=== PATIENT | female | born 1995 | race American Indian/Alaskan Native ===

== ENCOUNTER 2021-04-18 15:56 | Observation (INO) | payer MEDICAID ==
--- NOTE | 2021-04-18 17:23 | Emergency Department Report ---
ED General Adult HPI - General Chief complaint: Vaginal Bleeding Stated complaint: VAG BLEEDING Time Seen by Provider: 04/18/21 17:16 Source: patient Mode of arrival: Ambulatory Limitations: No Limitations - History of Present Illness Initial comments: Patient is a 25-year-old female presents emergency complaints of vaginal bleeding that began 2 days ago. She states that this morning she began having lower abdominal cramping. She states that she is also been having some dysuria. She denies any fever, vomiting, diarrhea, nausea, abnormal vaginal discharge. She reports her last menstrual cycle was February 11. She states that she went to a clinic in [facility] - [place], [place] and was advised that she was but they were not able to visualize anything on ultrasound she was advised to return in 2 weeks, she states it has not quite been 2 weeks yet. No allergies to medications. /P:0/A:1 - Related Data Allergies Allergy/AdvReac Type Severity Reaction Status Date / Time No Known Allergies Allergy Unverified 04/18/21 16:11 ED Review of Systems ROS: Stated complaint: VAG BLEEDING Other details as noted in HPI Comment: All other systems reviewed and negative ED Past Medical Hx - Past Medical History Previous Medical History?: No - Surgical History Past Surgical History?: No ED Physical Exam - General Limitations: No Limitations General appearance: alert, in no apparent distress - Head Head exam: Present: atraumatic, normocephalic - Eye Eye exam: Present: normal appearance - ENT ENT exam: Present: mucous membranes moist - Respiratory Respiratory exam: Present: normal lung sounds bilaterally. Absent: respiratory distress, wheezes, rales, rhonchi, stridor, chest wall tenderness, accessory muscle use, decreased breath sounds, prolonged expiratory - Cardiovascular Cardiovascular Exam: Present: regular rate, normal rhythm, normal heart sounds. Absent: systolic murmur, diastolic murmur, rubs, gallop - GI/Abdominal GI/Abdominal exam: Present: soft, normal bowel sounds. Absent: distended, tenderness, guarding, rebound, rigid - Neurological Exam Neurological exam: Present: alert, oriented X3 - Psychiatric Psychiatric exam: Present: normal affect, normal mood - Skin Skin exam: Present: warm, dry, intact ED Course Vital Signs 04/18/21 04/18/21 16:12 20:40 Temperature 98.6 F Pulse Rate 90 81 Respiratory 16 Rate Blood Pressure 122/61 Blood Pressure 116/60 [Left] O2 Sat by Pulse 100 100 Oximetry - Consultations Consultation #1: 04/18/21 19:[address] Richard, [employer] regarding patient history and results, advised to have nurses place two large-bore IVs, give 1 L normal saline, and he advised to have 2 units of packed red blood cells crossmatched to patient but do not need to transfuse unless he needs them in the operating room, he will accept and resume care of patient ED Medical Decision Making - Lab Data Result diagrams: 04/18/21 17:34 04/18/21 17:34 Lab Results 04/18/21 04/18/21 04/18/21 Range/Units 17:34 17:34 17:34 WBC 9.5 (4.5-11.0) K/mm3 RBC 4.37 (3.65-5.03) M/mm3 Hgb 11.8 (10.1-14.3) gm/dl Hct 36.8 (30.3-42.9) % MCV 84 (79-97) fl MCH 28 (28-32) pg MCHC 33 (30-34) % RDW 14.0 (13.2-15.2) % Plt Count 422 (140-440) K/mm3 Lymph % (Auto) 18.5 (13.4-35.0) % [place] % (Auto) 6.9 (0.0-7.3) % Eos % (Auto) 0.7 (0.0-4.3) % Baso % (Auto) 0.5 (0.0-1.8) % Lymph # (Auto) 1.7 (1.2-5.4) K/mm3 [place] # (Auto) 0.6 (0.0-0.8) K/mm3 Eos # (Auto) 0.1 (0.0-0.4) K/mm3 Baso # (Auto) 0.1 (0.0-0.1) K/mm3 Seg Neutrophils % 73.4 H (40.0-70.0) % Seg Neutrophils # 7.0 (1.8-7.7) K/mm3 Sodium 139 (137-145) mmol/L Potassium 3.5 L (3.6-5.0) mmol/L Chloride 102.0 (98-107) mmol/L Carbon Dioxide 22 (22-30) mmol/L Anion Gap 19 mmol/L BUN 7 (7-17) mg/dL Creatinine 0.6 (0.6-1.2) mg/dL Estimated GFR > 60 ml/min BUN/Creatinine Ratio 12 % Glucose 98 (65-100) mg/dL Calcium 9.3 (8.4-10.2) mg/dL Total Bilirubin 0.60 (0.1-1.2) mg/dL AST 13 (5-40) units/L ALT 9 (7-56) units/L Alkaline Phosphatase 82 (35-129) units/L Total Protein 7.8 (6.3-8.2) g/dL Albumin 4.2 (3.9-5) g/dL Albumin/Globulin Ratio 1.2 % HCG, Quant 1871 H (0-4) mIU/mL Urine Color (Yellow) Urine Turbidity (Clear) Urine pH (5.0-7.0) Ur Specific [place] (1.003-1.030) Urine Protein (Negative) mg/dL Urine Glucose (UA) (Negative) mg/dL Urine Ketones (Negative) mg/dL Urine Blood (Negative) Urine Nitrite (Negative) Urine Bilirubin (Negative) Urine Urobilinogen (<2.0) mg/dL Ur Leukocyte Esterase (Negative) Urine WBC (Auto) (0.0-6.0) /HPF Urine RBC (Auto) (0.0-6.0) /HPF U Epithel Cells (Auto) (0-13.0) /HPF Urine Bacteria (Auto) (Negative) /HPF Urine Mucus /HPF Blood Type Crossmatch 04/18/21 04/18/21 04/18/21 Range/Units 17:34 19:50 Unknown WBC (4.5-11.0) K/mm3 RBC (3.65-5.03) M/mm3 Hgb (10.1-14.3) gm/dl Hct (30.3-42.9) % MCV (79-97) fl MCH (28-32) pg MCHC (30-34) % RDW (13.2-15.2) % Plt Count (140-440) K/mm3 Lymph % (Auto) (13.4-35.0) % [place] % (Auto) (0.0-7.3) % Eos % (Auto) (0.0-4.3) % Baso % (Auto) (0.0-1.8) % Lymph # (Auto) (1.2-5.4) K/mm3 [place] # (Auto) (0.0-0.8) K/mm3 Eos # (Auto) (0.0-0.4) K/mm3 Baso # (Auto) (0.0-0.1) K/mm3 Seg Neutrophils % (40.0-70.0) % Seg Neutrophils # (1.8-7.7) K/mm3 Sodium (137-145) mmol/L Potassium (3.6-5.0) mmol/L Chloride (98-107) mmol/L Carbon Dioxide (22-30) mmol/L Anion Gap mmol/L BUN (7-17) mg/dL Creatinine (0.6-1.2) mg/dL Estimated GFR ml/min BUN/Creatinine Ratio % Glucose (65-100) mg/dL Calcium (8.4-10.2) mg/dL Total Bilirubin (0.1-1.2) mg/dL AST (5-40) units/L ALT (7-56) units/L Alkaline Phosphatase (35-129) units/L Total Protein (6.3-8.2) g/dL Albumin (3.9-5) g/dL Albumin/Globulin Ratio % HCG, Quant (0-4) mIU/mL Urine Color Red (Yellow) Urine Turbidity Clear (Clear) Urine pH 5.0 (5.0-7.0) Ur Specific [place] 1.019 (1.003-1.030) Urine Protein 100 mg/dl (Negative) mg/dL Urine Glucose (UA) 50 (Negative) mg/dL Urine Ketones Neg (Negative) mg/dL Urine Blood Mod (Negative) Urine Nitrite Pos (Negative) Urine Bilirubin Neg (Negative) Urine Urobilinogen 2.0 (<2.0) mg/dL Ur Leukocyte Esterase Neg (Negative) Urine WBC (Auto) 16.0 H (0.0-6.0) /HPF Urine RBC (Auto) 7.0 (0.0-6.0) /HPF U Epithel Cells (Auto) 14.0 H (0-13.0) /HPF Urine Bacteria (Auto) 1+ (Negative) /HPF Urine Mucus 2+ /HPF Blood Type O POSITIVE O POSITIVE Crossmatch See Detail - Radiology Data Radiology results: report reviewed Ordering Physician: FERNANDO RICHARD Date of Service: 04/18/21 Procedure(s): US OB transvaginal Accession Number(s): [id number] cc: FERNANDO RICHARD ULTRASOUND OBSTETRIC INDICATION / CLINICAL INFORMATION: , cramping, bleeding. TECHNIQUE: Transabdominal and Transvaginal. COMPARISON: None available. FINDINGS: There is no intrauterine . There is a rounded structure in the right adnexa appearing to be in the right tube that may indicate an ectopic in the fallopian tube. The uterus and ovaries appear normal otherwise. There is some free fluid in the pelvis. IMPRESSION: Rounded structure in the right fallopian tube region suggestive of an ectopic . Correlation with hCG values is recommended. Findings discussed with Renate Barnes at 6:49 PM on 04/18/2021. Signer Name: Kit Gould MD Signed: 04/18/2021 7:49 PM Workstation Name: [id number] Transcribed By: TERESO Dictated By: Kit Gould MD Electronically Authenticated By: Kit Gould MD Signed Date/Time: 04/18/211948 DD/ 44 TD/TT: - Medical Decision Making Patient is a 25-year-old female presents emergency complaints of vaginal bleeding that began 2 days ago. She states that this morning she began having lower abdominal cramping. She states that she is also been having some dysuria. She denies any fever, vomiting, diarrhea, nausea, abnormal vaginal discharge. She reports her last menstrual cycle was February 11. She states that she went to a clinic in [facility] [place], [place] and was advised that she was but they were not able to visualize anything on ultrasound she was advised to return in 2 weeks, she states it has not quite been 2 weeks yet. No allergies to medications. /P:0/A:1. Vitals are stable. Patient is Rh+. H&H is normal. hCG quant is 1817. UA shows 1+ bacteria and white blood cells, there are many epithelial cells, could be due to contamination, will give patient 1 g ceftriaxone while in the emergency department. OB ultrasound Rounded structure in the right fallopian tube region suggestive of an ectopic . Correlation with hCG values is recommended. Spoke to Dr. Richard, [employer] regarding patient history and results, advised to have nurses place two large- bore IVs, give 1 L normal saline, and he advised to have 2 units of packed red blood cells crossmatched to patient but do not need to transfuse unless he needs them in the operating room, he will accept and resume care of patient. Discussed all findings with patient who is agreeable with plan. Critical care attestation.: If time is entered above; I have spent that time in minutes in the direct care of this critically ill patient, excluding procedure time. ED Disposition Clinical Impression: Ectopic Qualifiers: Location of ectopic : tubal Intrauterine status: without intrauterine Laterality: right Qualified Code(s): O00.101 - Right tubal without intrauterine UTI (urinary tract infection) Qualifiers: Urinary tract infection type: acute cystitis Hematuria presence: without hematuria Qualified Code(s): N30.00 - Acute cystitis without hematuria Disposition: 30 STILL A PATIENT Is pt being admited?: No Does the pt Need Aspirin: No Condition: Stable Referrals: PRIMARY CARE, [Primary Care Provider] - 3-5 Days Time of Disposition: 19:58 Print Language: TURKMEN
[2021-04-18 18:01] LABS: Basophils # (Auto) 0.1 K/mm3 (0.0-0.1); Basophils % (Auto) 0.5 % (0.0-1.8); Eosinophils # (Auto) 0.1 K/mm3 (0.0-0.4); Eosinophils % (Auto) 0.7 % (0.0-4.3); Hemoglobin 11.8 gm/dl (10.1-14.3); Lymphocytes # (Auto) 1.7 K/mm3 (1.2-5.4); Lymphocytes % (Auto) 18.5 % (13.4-35.0); Monocytes # (Auto) 0.6 K/mm3 (0.0-0.8); Monocytes % (Auto) 6.9 % (0.0-7.3)
[2021-04-18 18:15] LABS: Hematocrit 36.8 % (30.3-42.9); Mean Corpuscular HGB Conc 33 % (30-34); Mean Corpuscular Volume 84 fl (79-97); Platelet Count 422 K/mm3 (140-440); Red Blood Count 4.37 M/mm3 (3.65-5.03)
[2021-04-18 18:16] LABS: Bacteria,Urine 1+ /HPF (Negative); Bilirubin,Urine NEG (Negative); Blood,Urine MOD (Negative); Color,Urine Red (Yellow); Mucus,Urine 2+ /HPF
[2021-04-18 18:18] LABS: Alanine Aminotransferase 9 units/L (7-56); Albumin 4.2 g/dL (3.9-5); Blood Urea Nitrogen 7 mg/dL (7-17); Calcium 9.3 mg/dL (8.4-10.2); Hemolysis Index 0
[2021-04-18 18:20] LABS: BUN/Creatinine Ratio 12
[2021-04-18] MEDS ORDERED: SODIUM CHLORIDE 0.9% 1000 ML 1,000 ML IV ONE (19:52)
--- NOTE | 2021-04-18 19:54 | Ultrasound Report ---
ULTRASOUND OBSTETRIC INDICATION / CLINICAL INFORMATION: , cramping, bleeding. TECHNIQUE: Transabdominal and Transvaginal. COMPARISON: None available. FINDINGS: There is no intrauterine . There is a rounded structure in the right adnexa appearing to be in the right tube that may indicate an ectopic in the fallopian tube. The uterus and ovaries appear normal otherwise. There is some free fluid in the pelvis. IMPRESSION: Rounded structure in the right fallopian tube region suggestive of an ectopic . Correlation with hCG values is recommended. Findings discussed with Renate Barnes at 6:49 PM on 04/18/2021. Signer Name: Kit Gould MD Signed: 04/18/2021 7:49 PM Workstation Name: [id number]
[2021-04-18] MEDS ORDERED: SODIUM CHLORIDE 0.9% 500 ML 500 ML IV ONE (19:56)
[2021-04-18] MEDS ORDERED: cefTRIAXone/NS 1 GM/50 ML 1 GM/50 ML BAG IV ONE (20:48)
--- NOTE | 2021-04-18 21:00 | Anesthesia Consultation ---
Anesthesia Consult and Med Hx Date of service: 04/18/21 - Airway Anesthetic Teeth Evaluation: Good, Crowns ROM Head & Neck: Adequate Mental/Hyoid Distance: Adequate Mallampati Class: Class II Intubation Access Assessment: Probably Good - Pre-Operative Health Status ASA Pre-Surgery Classification: ASA1, Emergency Proposed Anesthetic Plan: General - Pulmonary Hx Smoking: Yes (vape) Hx Asthma: No Hx Respiratory Symptoms: No SOB: No COPD: No Home Oxygen Therapy: No Hx Pneumonia: No Hx Sleep Apnea: No - Cardiovascular System Hx Hypertension: No Hx Coronary Artery Disease: No Hx Heart Attack/AMI: No Hx Angina: No Hx Percutaneous Transluminal Coronary Angioplasty (PTCA): No Hx Cardia Arrhythmia: No Hx Pacemaker: No Hx Internal Defibrillator: No Hx Valvular Heart Disease: No Hx Heart Murmur: No Hx Peripheral Vascular Disease: No - Central Nervous System Hx Neuromuscular Disorder: No Hx Seizures: No CVA: No Hx Back Pain: No Hx Psychiatric Problems: No - Gastrointestinal Hx Ulcer: No Hx Gastroesophageal Reflux Disease: No - Endocrine Hx Renal Disease: No Hx End Stage Renal Disease: No Hx Cirrhosis: No Hx Liver Disease: No Hx Insulin Dependent Diabetes: No Hx Non-Insulin Dependent Diabetes: No Hx Thyroid Disease: No Hx Hypothyroidism: No Hx Hyperthyroidism: No - Hematic Hx Anemia: No Hx Sickle Cell Disease: No - Other Systems Hx Alcohol Use: Yes (daily) Hx Substance Use: No Hx Cancer: No Hx Obesity: Yes
--- NOTE | 2021-04-18 21:03 | Anesthesia Day of Surgery ---
Anesthesia Day of Surgery - Day of Surgery Patient Examined: Yes Patient H&P Reviewed: Yes Patient is NPO: Yes
[2021-04-18] MEDS ORDERED: BUPIVACAINE/PF (0.5%) 5 MG/1 ML 30 ML VIAL INFILTRATI ONE (21:21)
[2021-04-18] MEDS ORDERED: ONDANSETRON 4 MG/2 ML INJ ONE (21:27)
[2021-04-18] MEDS ORDERED: LIDOCAINE MPF (2%) 20 MG/1 ML VIAL 5 ML ONE (21:27)
[2021-04-18] MEDS ORDERED: GLYCOPYRROLATE 0.4 MG/2 ML INJ ONE (21:27)
[2021-04-18] MEDS ORDERED: fentaNYL 100 MCG/2 ML INJ ONE ×2 (21:27→22:34)
[2021-04-18] MEDS ORDERED: SUCCINYLCHOLINE CHLORIDE 200 MG/10 ML INJ MDV ONE (21:27)
[2021-04-18] MEDS ORDERED: PHENYLEPHRINE/NS 1,000 MCG/10 ML SYRINGE (OR USE) IV ONE (21:27)
[2021-04-18] MEDS ORDERED: dexAMETHasone 20 MG/5 ML VIAL ONE (21:27)
[2021-04-18] MEDS ORDERED: propofoL 200 MG/20 ML VIAL IV ONE (21:28)
--- NOTE | 2021-04-18 21:50 | History and Physical Report ---
History of Present Illness Date of examination: 04/18/21 Date of admission: 04/18/21 Chief complaint: pelvic pain x 2wks. History of present illness: 25 yr old. . pelvic pains, spotting vaginally, positive pregnacy. US finding of an adnexal mass, no IUP. Serum quant approx 1800. Past History Past Medical History: no pertinent history Medications and Allergies Allergies Allergy/AdvReac Type Severity Reaction Status Date / Time No Known Allergies Allergy Unverified 04/18/21 16:11 Review of Systems All systems: negative Genitourinary: vaginal bleeding, pelvic pain - Vital Signs Vital signs: Vital Signs Temp Pulse BP Pulse Ox 98.6 F 90 122/61 100 04/18/21 16:12 04/18/21 16:12 04/18/21 16:12 04/18/21 16:12 Temp Pulse Resp BP Pulse Ox 98.6 F 81 16 116/60 100 04/18/21 16:12 04/18/21 20:40 04/18/21 20:40 04/18/21 20:40 04/18/21 20:40 - Physical Exam Breasts: Positive: deferred Lungs: Positive: Normal air movement Abdomen: Positive: tenderness Extremities: Positive: normal Deep Tendon Reflex Grade: Normal +2 Results Result Diagrams: 04/18/21 17:34 04/18/21 17:34 Abnormal lab results 04/18/21 04/18/21 04/18/21 Range/Units 17:34 17:34 17:34 Seg Neutrophils % 73.4 H (40.0-70.0) % Potassium 3.5 L (3.6-5.0) mmol/L HCG, Quant 1871 H (0-4) mIU/mL Urine WBC (Auto) (0.0-6.0) /HPF U Epithel Cells (Auto) (0-13.0) /HPF Crossmatch 04/18/21 04/18/21 Range/Units 19:50 Unknown Seg Neutrophils % (40.0-70.0) % Potassium (3.6-5.0) mmol/L HCG, Quant (0-4) mIU/mL Urine WBC (Auto) 16.0 H (0.0-6.0) /HPF U Epithel Cells (Auto) 14.0 H (0-13.0) /HPF Crossmatch See Detail All other labs normal. Assessment and Plan - Patient Problems (1) Ectopic Current Visit: Yes Status: Acute Qualifiers: Location of ectopic : tubal Intrauterine status: without intrauterine Laterality: right Qualified Code(s): O00.101 - Right tubal without intrauterine Plan to address problem: for exploratory laparoscopy, plus definitive procedure to treat findings.
[2021-04-18] MEDS ORDERED: SODIUM CHLORIDE 0.9% IRR 1,500 ML BOTTLE IR ONE (22:16)
[2021-04-18] MEDS ORDERED: SUGAMMADEX SODIUM 200 MG/2 ML VIAL IV ONE (23:24)
[2021-04-18] MEDS ORDERED: ONDANSETRON 4 MG/2 ML INJ IV PRN (23:45)
[2021-04-18] MEDS ORDERED: NALOXONE 0.4 MG/1 ML INJ IV PRN (23:45)
[2021-04-18] MEDS ORDERED: ACETAMINOPHEN 325 MG TAB PO PRN (23:45)
[2021-04-18] MEDS ORDERED: MORPHINE 2 MG/1 ML INJ IV PRN (23:45)
[2021-04-18] MEDS ORDERED: HYDROcodone/ACETAMINOPHEN 5-325 MG TAB PO PRN (23:45)
[2021-04-18] MEDS ORDERED: KETOROLAC 30 MG/1 ML INJ IV PRN (23:45)
[2021-04-18] MEDS: HYDROmorphone 1 MG/1 ML INJ IV PRN (23:50)
[2021-04-18] MEDS ORDERED: HYDROmorphone 1 MG/1 ML INJ ONE (23:50)
--- NOTE | 2021-04-18 23:55 | Post Anesthesia Evaluation ---
- Post Anesthesia Evaluation Patient Participated: Yes Airway Patent: Yes Stable Respiratory Function: Yes Nausea/Vomiting: No Temp > 96.8F: Yes Pain Manageable: Yes Adequeate Hydration: Yes Anesthesia Complications: No Block Receding Appropriately: Not Applicable Patient on Ventilator: No Other Comments: pt a+o x3. no distress noted. resting comfortable in bed. vitals stable
[2021-04-19] MEDS: HYDROmorphone 1 MG/1 ML INJ IV PRN
--- NOTE | 2021-04-19 00:12 | Operative Report ---
Operative Report Operative Report: Date of surgery: April 18, 2021 Preoperative diagnosis: Right tubal ectopic Post operative diagnosis: Right tubal ectopic with moderate hemoperitoneum. Procedures: 1, attempted laparoscopic approach. 2, exploratory laparotomy. 3, right salpingectomy. Surgeon: Melony Richard MD Anesthesiologist: Myron Saavedra CRNA Anesthesia: GA EBL: 50cc Complications: none. Findings: Obese abdomen with inelastic tissue planes. Establishing a pneumoperitoneum was difficult and had to be tempered as it affected lungs ventilation by assistant financial accountant. The uterus was normal-sized anteverted. Both ovaries were grossly normal. The left fallopian tube was grossly normal. The right fallopian tube in its distal third was ballooned out by hemorrhagic mass. The inferior aspects of the greater omentum were grossly laden with adipose tissue. There was moderate hemoperitoneum within the peritoneal cavity. Procedure in detail: Patient was taken to the operating room. She was placed in the straight supine position and given general anesthesia. Patient was put in the lithotomy posi tion and prepped in the vulvar vagina and abdomen. The drapes were placed. A time out was done. With permission from the assistant financial accountant the procedure started with insertion of an indwelling Armstrong's catheter as well as a manipulating tenaculum placed on the anterior lip of the cervix. A subumbilical incision was made. The Veress needle was inserted carefully as possible to the peritoneal cavity with care taken to point the tip of the Veress needle into the free hollow of the pelvis. The Veress needle was aspirated and no blood was obtained. The Veress needle was further flushed through with a small quantity of sterile normal saline without any resistance. The general peritoneal cavity was thereafter insufflated with 1.3 L of CO2. This was insufficient for insertion of the 12 mm trocar and port. Permission of the assistant financial accountant was sought to increase the intraperitoneal pressure to 30 to allow more distention of the peritoneal cavity. The assistant financial accountant noticed difficulty with ventilation of the patient and the intraperitoneal pressure was promptly reduced. Attempts at placing a 12 mm port failed. An attempt at manual access through the subumbilical incision into peritoneal cavity also failed-the anterior parietal peritoneum was too tough to breech with my index finger. A decision was made to use a mini laparotomy through a small Pfannenstiel incision. The peritoneal cavity was quickly accessed in the usual fashion. The findings above were noted. The entire pelvis was carefully examined to locate the bleeding mass. This was excised using the LigaSure. The peritoneal cavity was irrigated with sterile normal saline. Hemostasis was great. The anterior parietal peritoneum was closed with #1 Vicryl as was the fascia. The skin was closed subcuticularly with 4-0 Vicryl. The incision at the navel was also closed in layers. Patient tolerated the procedure well. There were no complications. All sponges and instruments were accounted for. Patient was transferred safely to the recovery room.
[2021-04-19] MEDS ORDERED: LACTATED RINGERS 1,000 ML ONE (00:43)
[2021-04-19 05:48] LABS: Hematocrit 34.6 % (30.3-42.9); Hemoglobin 11.1 gm/dl (10.1-14.3); Mean Corpuscular HGB Conc 32 % (30-34); Mean Corpuscular Volume 85 fl (79-97); Platelet Count 424 K/mm3 (140-440); Red Blood Count 4.08 M/mm3 (3.65-5.03); Red Cell Distribution Width 14.4 % (13.2-15.2)
[2021-04-19 09:06] LABS: Anisocytosis 1+; Band Neutrophils # (Manual) 0.1 K/mm3; Total Cells Counted 100
--- NOTE | 2021-04-19 15:26 | Progress Note ---
Assessment and Plan - Patient Problems (1) Ectopic Current Visit: Yes Status: Acute Qualifiers: Location of ectopic : tubal Intrauterine status: without intrauterine Laterality: right Qualified Code(s): O00.101 - Right tubal without intrauterine (2) Status post abdominal surgery, follow-up exam Current Visit: Yes Status: Acute Plan to address problem: stable and may go home with script for norco 5. Subjective Date of service: 04/19/21 Principal diagnosis: Status post exploratory laparotomy and right salpingectomy. Interval history: Exp laparotomy 04/18/21 for bleeding ectopic . Objective - Constitutional Vitals: Vital Signs - 12hr 04/19/21 04/19/21 04/19/21 03:44 03:45 04:30 Temperature 97.7 F Pulse Rate 74 Respiratory 18 20 Rate Respiratory 18 Rate [Lower Abdomen] Blood Pressure 107/69 O2 Sat by Pulse 100 Oximetry 04/19/21 04/19/21 04/19/21 08:42 08:48 09:44 Temperature 97.9 F Pulse Rate 70 Respiratory 18 16 Rate Respiratory Rate [Lower Abdomen] Blood Pressure 105/48 O2 Sat by Pulse 100 99 Oximetry General appearance: Present: no acute distress - EENT Eyes: PERRL, EOM intact ENT: hearing intact - Neck Neck: supple, normal ROM - Respiratory Respiratory effort: normal - Cardiovascular Rhythm: regular Extremities: pulses intact, No edema, normal color, Full ROM - Gastrointestinal General gastrointestinal: Present: soft - Genitourinary Female genitourinary: deferred - Integumentary Integumentary: clear, warm, dry - Neurologic Neurologic: moves all extremities, gait normal - Labs CBC & Chem 7: 04/19/21 05:17 04/18/21 17:34 Labs: Abnormal lab results 04/18/21 04/18/21 04/18/21 Range/Units 17:34 17:34 17:34 WBC (4.5-11.0) K/mm3 MCH (28-32) pg Seg Neutrophils % 73.4 H (40.0-70.0) % Seg Neuts % (Manual) (40.0-70.0) % Lymphocytes % (Manual) (13.4-35.0) % Nucleated RBC % (0.0-0.9) % Seg Neutrophils # Man (1.8-7.7) K/mm3 Lymphocytes # (Manual) (1.2-5.4) K/mm3 Potassium 3.5 L (3.6-5.0) mmol/L HCG, Quant 1871 H (0-4) mIU/mL Urine WBC (Auto) (0.0-6.0) /HPF U Epithel Cells (Auto) (0-13.0) /HPF Crossmatch 04/18/21 04/18/21 04/19/21 Range/Units 19:50 Unknown 05:17 WBC 11.9 H (4.5-11.0) K/mm3 MCH 27 L (28-32) pg Seg Neutrophils % (40.0-70.0) % Seg Neuts % (Manual) 92.0 H (40.0-70.0) % Lymphocytes % (Manual) 5.0 L (13.4-35.0) % Nucleated RBC % 1.0 H (0.0-0.9) % Seg Neutrophils # Man 10.9 H (1.8-7.7) K/mm3 Lymphocytes # (Manual) 0.6 L (1.2-5.4) K/mm3 Potassium (3.6-5.0) mmol/L HCG, Quant (0-4) mIU/mL Urine WBC (Auto) 16.0 H (0.0-6.0) /HPF U Epithel Cells (Auto) 14.0 H (0-13.0) /HPF Crossmatch See Detail Medications & Allergies - Medications Allergies/Adverse Reactions: Allergies No Known Allergies Allergy (Verified 04/18/21 22:56) Home Medications: Home Medications Medication Instructions Recorded Confirmed Last Taken Type No Known Home Medications [No 04/19/21 04/19/21 Unknown History Reported Home Medications] Active Medications: Generic Name Dose Route Start Last Admin Trade Name Freq PRN Reason Stop Dose Admin Acetaminophen 650 mg 04/18/21 23:45 Acetaminophen 325 Mg Tab PO Q4H PRN Pain MILD(1-3)/Fever >100.5/MORENO Hydrocodone Bitart/Acetaminophen 2 each 04/18/21 23:45 04/19/21 09:44 Hydrocodone/Acetaminophen 5-325 Mg Tab PO 2 each Q6H PRN Administration Pain, Moderate (4-6) Hydromorphone HCl 0.5 mg 04/18/21 23:56 04/19/21 00:00 Hydromorphone 1 Mg/1 Ml Inj IV 04/19/21 23:55 0.5 mg Q10MIN PRN Administration Pain , Severe (7-10) Ketorolac Tromethamine 30 mg 04/18/21 23:45 04/19/21 03:44 Ketorolac 30 Mg/1 Ml Inj IV 04/23/21 23:44 30 mg Q6H PRN Administration Pain, Moderate (4-6) Morphine Sulfate 2 mg 04/18/21 23:45 Morphine 2 Mg/1 Ml Inj IV Q4H PRN Pain, Moderate (4-6) Naloxone HCl 0.1 mg 04/18/21 23:45 Naloxone 0.4 Mg/1 Ml Inj IV Q2MIN PRN Res Rate </= 8 or 02 SAT < 92% Ondansetron HCl 4 mg 04/18/21 23:45 Ondansetron 4 Mg/2 Ml Inj IV Q8H PRN N/V unrelieved by Pushpa
[2021-04-19 15:48] VITALS: BP 112/68
== END 2021-04-19 15:25 | disposition home or self-care (01) ==
LOC: ED 15:56 → OB 23:44
PROVIDERS: ADMIT Obstetrics & Gynecology; ATTEND Obstetrics & Gynecology
DX: O00.101 Right tubal pregnancy without intrauterine pregnancy (principal); O26.891 Other specified pregnancy related conditions, first trimester; R10.2 Pelvic and perineal pain; O23.91 Unspecified genitourinary tract infection in pregnancy, first trimester; N30.00 Acute cystitis without hematuria; O23.11 Infections of bladder in pregnancy, first trimester; Z3A.01 Less than 8 weeks gestation of pregnancy; Z79.899 Other long term (current) drug therapy; Z98.890 Other specified postprocedural states
CPT/HCPCS: 36415; 58700; 76801; 76817; 80053; 81001; 84702; 85025; 86850; 86900; 86901; 87086; 88302; 96374; 99285; G0378; J0330; J0696; J1100; J1170; J1815; J1885; J2370; J2405; J2704; J3010; J3490; J7030; 85007; 86920; 88305; J7120; Q0162

== ENCOUNTER 2021-05-04 11:12 | Emergency (ER) | payer MEDICAID ==
[2021-05-04 11:20] VITALS: BP 117/70
== END 2021-05-04 11:20 | disposition left against medical advice (07) ==
LOC: ED 11:12
DX: R10.9 Unspecified abdominal pain (principal); Z53.21 Procedure and treatment not carried out due to patient leaving prior to being seen by health care provider